=== PATIENT | female | born 1945 | race Caucasian/White ===

== ENCOUNTER 2020-12-17 12:05 | Day surgery (SDC) | payer MEDICARE ==
[2020-12-17] MEDS ORDERED: BUPIVACAINE 0.5% VIAL IJ ONE (12:06)
[2020-12-17] MEDS ORDERED: Depo-Medrol 40 MG/ML IM ONE (12:06)
[2020-12-17 12:56] LABS: INR 1.99 (0.8-3.0); PROTIME 22.7 SECONDS (9.95-12.35)
[2020-12-17] MEDS ORDERED: DIPRIVAN 200 MG/20 ML IV ONE (13:03)
--- NOTE | 2020-12-17 14:10 | XRAY ---
Indication: Bilateral SI joint injection. Intraoperative fluoroscopy provided for 14 seconds. 4 digital spot images submitted for interpretation demonstrates posterior needle tip projecting over the inferior left and right SI joint. Correlate with intraoperative findings/report.
--- NOTE | 2020-12-17 14:25 | XRAY ---
14 seconds of fluoroscopy was used in surgery for bilateral SI joint injections.
[2020-12-17] MEDS ORDERED: Lactated Ringers 1,000 ML IV ONE (15:29)
== END 2020-12-17 13:33 | disposition home or self-care (01) ==
LOC: SDC-PAIN 12:05
PROVIDERS: ATTEND Psychiatry & Neurology Pain Medicine
DX: M46.1 Sacroiliitis, not elsewhere classified (principal); E72.11 Homocystinuria; Z79.899 Other long term (current) drug therapy; Z79.01 Long term (current) use of anticoagulants
CPT/HCPCS: 27096; 36415; 72202; 77002; 85610; 99100; J1030; J2704; G0260

== ENCOUNTER 2021-03-25 15:37 | Day surgery (SDC) | payer MEDICARE ==
[2021-03-25] MEDS ORDERED: BUPIVACAINE 0.5% VIAL IJ ONE (15:38)
[2021-03-25] MEDS ORDERED: Depo-Medrol 40 MG/ML IM ONE (15:38)
[2021-03-25] MEDS ORDERED: Xylocaine 1% Vial 30 ML PF IJ ONE (15:38)
[2021-03-25 16:16] LABS: INR 2.65 (0.8-3.0); PROTIME 31.3 SECONDS (9.4-12.5)
--- NOTE | 2021-03-25 17:21 | XRAY ---
Indication: Right SI joint injection. Interpreted fluoroscopy provided for 11 seconds. Single lateral digital spot image submitted for interpretation demonstrates posterior needle tip projecting mid sacrum. Correlate with intraoperative findings/report.
--- NOTE | 2021-03-25 17:31 | XRAY ---
11 seconds of fluoroscopy was used in surgery for a right SI joint injection.
== END 2021-03-25 17:17 | disposition home or self-care (01) ==
LOC: SDC-PAIN 15:37
PROVIDERS: ATTEND Psychiatry & Neurology Pain Medicine
DX: M46.1 Sacroiliitis, not elsewhere classified (principal); Z79.899 Other long term (current) drug therapy; Z79.01 Long term (current) use of anticoagulants
CPT/HCPCS: 27096; 36415; 72020; 77002; 85610; G0260; J1030; J2001

== ENCOUNTER 2021-05-13 11:03 | Day surgery (SDC) | payer MEDICARE ==
[2021-05-13] MEDS ORDERED: Depo-Medrol 40 MG/ML IM ONE (11:04)
[2021-05-13] MEDS ORDERED: LIDOCAINE HCL 2% 100 MG/5 ML IJ ONE (11:04)
[2021-05-13 12:36] LABS: INR 1.19 (0.8-3.0)
[2021-05-13] MEDS ORDERED: DIPRIVAN 200 MG/20 ML IV ONE (13:28)
--- NOTE | 2021-05-13 15:17 | XRAY ---
Indication: Bilateral L4-S1 MBB. Intraoperative fluoroscopy provided for 10 seconds. Single digital spot image submitted for interpretation demonstrates posterior needle tips projecting over the expected left and right L4-L5 and S1 nerve roots. Correlate with intraoperative findings/report.
[2021-05-13] MEDS ORDERED: Lactated Ringers 1,000 ML IV ONE (15:27)
--- NOTE | 2021-05-13 17:03 | XRAY ---
10 seconds fluoroscopy time in surgery for bilateral L4-S1 MBB.
== END 2021-05-13 14:05 | disposition home or self-care (01) ==
LOC: SDC-PAIN 11:03
PROVIDERS: ATTEND Psychiatry & Neurology Pain Medicine
DX: M47.816 Spondylosis without myelopathy or radiculopathy, lumbar region (principal); Z79.899 Other long term (current) drug therapy; Z79.01 Long term (current) use of anticoagulants
CPT/HCPCS: 36415; 64493; 64494; 72020; 77002; 85610; J1030; J2704

== ENCOUNTER 2022-08-11 12:15 | Day surgery (SDC) | payer MEDICARE ==
[2022-08-11] MEDS ORDERED: BUPIVACAINE 0.5% VIAL IJ ONE (12:16)
[2022-08-11] MEDS ORDERED: Depo-Medrol 40 MG/ML IM ONE (12:16)
[2022-08-11] MEDS ORDERED: DIPRIVAN 200 MG/20 ML IV ONE (14:27)
[2022-08-11] MEDS ORDERED: Lactated Ringers 1,000 ML IV ONE (14:35)
--- NOTE | 2022-08-11 15:11 | XRAY ---
Indication: Bilateral L4-S1 MBB. Intraoperative fluoroscopy provided for 11 seconds. Single digital spot image submitted for interpretation demonstrates posterior needle tips projecting over the expected left and right L4-S1 nerve roots. Correlate with intraoperative findings/report.
--- NOTE | 2022-08-11 15:14 | XRAY ---
11 seconds of fluoroscopy was used in surgery for a bilateral L4-S1 MBB.
== END 2022-08-11 15:00 | disposition home or self-care (01) ==
LOC: SDC-PAIN 12:15
PROVIDERS: ATTEND Psychiatry & Neurology Pain Medicine
DX: M47.816 Spondylosis without myelopathy or radiculopathy, lumbar region (principal); Z79.899 Other long term (current) drug therapy
CPT/HCPCS: 64493; 64494; 72020; 77002; J1030; J2704

== ENCOUNTER 2022-12-01 10:52 | Day surgery (SDC) | payer MEDICARE ==
[2022-12-01] MEDS ORDERED: DIPRIVAN 200 MG/20 ML IV ONE ×2 (10:53→12:10)
[2022-12-01] MEDS ORDERED: Lactated Ringers 1,000 ML IV ONE ×2 (10:53→14:46)
--- NOTE | 2022-12-01 18:20 | XRAY ---
Indication: Right L4-S1 RFA. Intraoperative fluoroscopy provided for 19 seconds. 5 digital spot image submitted for interpretation demonstrates posterior needle tips projecting over the expected right L4-S1 nerve roots. Correlate with intraoperative findings/report.
--- NOTE | 2022-12-01 19:01 | XRAY ---
19 seconds of fluoroscopy was used in surgery for a right L4-S1 RFA.
[2022-12-02] MEDS ORDERED: BUPIVACAINE 0.5% VIAL IJ ONE (13:42)
[2022-12-02] MEDS ORDERED: Depo-Medrol 40 MG/ML IM ONE (13:42)
[2022-12-02] MEDS ORDERED: LIDOCAINE HCL 1% 50 MG/5 ML VL PF IJ ONE (13:42)
== END 2022-12-01 12:05 | disposition home or self-care (01) ==
LOC: SDC-PAIN 10:52
PROVIDERS: ATTEND Psychiatry & Neurology Pain Medicine
DX: M47.816 Spondylosis without myelopathy or radiculopathy, lumbar region (principal); Z79.899 Other long term (current) drug therapy
CPT/HCPCS: 64635; 64636; 72100; 77002; 99100; J1030; J2001; J2704

== ENCOUNTER 2022-12-01 10:52 | Day surgery (SDC) | payer MEDICARE ==
[2022-12-01] MEDS ORDERED: DIPRIVAN 200 MG/20 ML IV ONE (10:53)
[2022-12-01] MEDS ORDERED: Lactated Ringers 1,000 ML IV ONE (10:53)
== END 2022-12-01 12:05 | disposition home or self-care (01) ==
LOC: SDC-PAIN 10:52
PROVIDERS: ATTEND Psychiatry & Neurology Pain Medicine
DX: Z53.8 Procedure and treatment not carried out for other reasons (principal)
CPT/HCPCS: 72100; 77002; J2704

== ENCOUNTER 2022-12-08 10:57 | Day surgery (SDC) | payer MEDICARE ==
--- NOTE | 2022-12-08 13:48 | XRAY ---
Indication: Left L4-S1 RFA. Intraoperative fluoroscopy provided for 21 seconds. 3 digital spot image submitted for interpretation demonstrates posterior needle tips projecting over the expected left L4-S1 nerve roots. Correlate with intraoperative findings/report.
--- NOTE | 2022-12-08 14:19 | XRAY ---
21 seconds of fluoroscopy was used in surgery for a left L4-S1 RFA.
== END 2022-12-08 13:20 | disposition home or self-care (01) ==
LOC: SDC-PAIN 10:57
PROVIDERS: ATTEND Psychiatry & Neurology Pain Medicine
DX: M47.816 Spondylosis without myelopathy or radiculopathy, lumbar region (principal); Z79.899 Other long term (current) drug therapy
CPT/HCPCS: 64635; 64636; 72100; 77002; 99100; J1030; J2001

== ENCOUNTER 2023-01-19 13:20 | Day surgery (SDC) | payer MEDICARE ==
[2023-01-19] MEDS ORDERED: BUPIVACAINE 0.5% VIAL IJ ONE (13:21)
[2023-01-19] MEDS ORDERED: Depo-Medrol 40 MG/ML IM ONE (13:21)
[2023-01-19] MEDS ORDERED: DIPRIVAN 200 MG/20 ML IV ONE (15:50)
[2023-01-19] MEDS ORDERED: Lactated Ringers 1,000 ML IV ONE (17:01)
--- NOTE | 2023-01-19 20:57 | XRAY ---
Indication: Left SI joint injection. Intraoperative fluoroscopy provided for 13 seconds. 2 digital spot images submitted for interpretation demonstrates posterior needle tip projecting over the left SI joint. Correlate with intraoperative findings/report.
--- NOTE | 2023-01-20 09:04 | XRAY ---
13 seconds of fluoroscopy was used in surgery for a left sacroiliac joint injection.
== END 2023-01-19 16:15 | disposition home or self-care (01) ==
LOC: SDC-PAIN 13:20
PROVIDERS: ATTEND Psychiatry & Neurology Pain Medicine
DX: M46.1 Sacroiliitis, not elsewhere classified (principal); Z79.899 Other long term (current) drug therapy
CPT/HCPCS: 01992; 27096; 72170; 77002; 99100; G0260; J1030; J2704